=== PATIENT | female | born 1985 | race Caucasian/White ===

== ENCOUNTER 2021-07-13 17:03 | Outpatient (RCR) | payer BC, SELFPAY ==
--- NOTE | 2021-07-14 07:51 | PC.NURSE ---
07/13/2021 1711 - IN: 1630 OUT: 1711 History: Mother denies complications with her medical history with exception to her anxiety is increasing with the concerns of today which she takes Zoloft for. Mother states she had an uncomplicated at [facility] on 07/12/2021 and was discharged the same day. She is a G 3 P 3 and has a history of her other children. She states she had one good at [facility], then attempted with no latch twice. She had her infant visit today and was sent over to the hospital for bilirubin and consult. history: has a recessed chin. 3 voids and 3 stools. Stool today is transitional and moderate to large. Weight at was 8-9, discharge weight was 8-9 and weight at the [facility] office today was either 8-3 or 8-6 mother was unsure. Bilirubin today is 5.8 at 26 hours old. is alert, active and calm. Observations: Infant's chin is recessed and tongue moves out past the gum without visual restrictions. Infant clamps down jaw with attempt to breastfeed. Mother hand expresses yellow, clear, and white human milk from her breast and shares with her infant. Infant is alert after this and RN encourages but mother is wanting to attempt at home and is confident in her abilities as she has breastfed two other children. Mother declines supplementing with formula at this time. Education share regarding stimulating the breast with good effective feedings 10-12 times in 24 hours or pumping every 3 hours 1-2 times at night. Mother sometimes uses a nipple shield for the left nipple that is flat. Risks and benefits were discussed of using a nipple shield. Plan of Care: Mother will breastfeed more often (8-12 times in 24 hours) with and without a nipple shield as needed. Mother voiced understanding that infant will need to be fed more frequently with effective , pumped human milk or formula. Her plan is to pump her breast after feedings and feed expressed milk to the infant. Mother wants to go home and comfortably feed her at home. Mother has an appt at [facility] on 07/13/2021 and RN will do a follow-up phone call as well.
--- NOTE | 2021-08-25 11:00 | PC.NURSE ---
Received a voicemail on line from patient. Patient reaching out for support. Mom states that infant is having trouble . Per mom was born on [birth year] and had a tongue tie released by peds at 1 week old. Mother states she has had trouble getting a good latch and her nipples are destroyed . Patient states she has breastfed other children and watched videos on how to get a good latch. Mom states she is feeding 12 plus times a day at breast. She states she has started supplementing 1-2 times a day with 2-4 ounces of formula. Mom states that infant is voiding 4-6 times per day and stooling 2x per day. Last peds visit was 2 weeks ago and infant weighed 9-3. weight was 8-9. Mother encouraged to reach out to Alyson Parrish [employer] and given her phone number. Mother told to supplement post breastfeedings until seen by a provider. Breast care discussed including good handwashing and giving the breasts open to air time. Consent given by mom to let Alyson know that she would be reaching out.
== END 2021-10-11 23:59 | disposition home or self-care (01) ==
LOC: ANHOBOP 17:03
PROVIDERS: PCP Pediatrics; Visit Provider Pediatrics
DX: Z39.1 Encounter for care and examination of lactating mother (principal)
CPT/HCPCS: 99202; G0463

== ENCOUNTER 2024-02-23 09:45 | Outpatient (CLI) | payer BC, SELFPAY ==
--- NOTE | ~2024-02-23 | US_ITS ---
EXAMINATION: US thyroid DATE: 02/23/2024 10:02 INDICATION: Dysphagia. TECHNIQUE: Multiple ultrasound images of the thyroid were obtained. COMPARISON: None. FINDINGS: The right thyroid lobe measures 5.2 x 1.1 x 1.0 cm. The left thyroid lobe measures 4.9 x 1.1 x 1.5 c m. There is normal echotexture and echogenicity throughout the thyroid gland. No discrete nodules id entified. Normal vascular flow is present. IMPRESSION: 1. Normal thyroid. Reviewed, dictated and finalized at location A. OR ASSISTANT MANAGER IMPRESSION: 1. Normal thyroid.
== END 2024-02-23 09:46 | disposition home or self-care (01) ==
PROVIDERS: PCP Registered Nurse; Visit Provider Registered Nurse
DX: R13.13 Dysphagia, pharyngeal phase (principal)
CPT/HCPCS: 76536